=== PATIENT | female | born 1950 | race Caucasian/White ===

== ENCOUNTER 2019-05-30 06:46 | Inpatient (IN) | payer MEDICARE, BC, OTHER ==
[2019-05-17 12:14] LABS: BASOPHILS # (AUTO) 0.1 X10'3 (0-0.2); BASOPHILS % (AUTO) 1.3 % (0-1); EOSINOPHILS # (AUTO) 0.1 X10'3 (0-0.9); LYMPHOCYTES # (AUTO) 1.1 X10'3 (1.1-4.8); LYMPHOCYTES % (AUTO) 25.7 % (21-51); MEAN CORPUSCULAR HEMOGLOBIN 30.2 PG (27.0-31.0); MEAN CORPUSCULAR HGB CONC 33.3 g/dL (33.0-36.5); MEAN CORPUSCULAR VOLUME 90.5 FL (78-98); MEAN PLATELET VOLUME 7.7 FL (7.4-10.4); MONOCYTES # (AUTO) 0.4 X10'3 (0-0.9); MONOCYTES % (AUTO) 8.8 % (2-12); NEUTROPHILS # (AUTO) 2.5 X10'3 (1.8-7.7); NEUTROPHILS % (AUTO) 61.2 % (42-75); PRE OP HEMATOCRIT 40.9 % (35.0-45.0); PRE OP HEMOGLOBIN 13.6 g/dL (12.0-16.0); PRE OP PLATELET COUNT 297 X10'3 (140-440); RED BLOOD COUNT 4.52 X10'6 (4.20-5.60)
[2019-05-17 12:27] LABS: ALBUMIN/GLOBULIN RATIO 1.1 (1.1-1.5); ALKALINE PHOSPHATASE 110 IU/L (46-116); BLOOD UREA NITROGEN 12 MG/DL (7-18); BUN/CREATININE RATIO 20.3 (6.6-38.0); CHLORIDE 106 MMOL/L (99-107); CREATININE 0.59 MG/DL (0.40-0.90); PRE OP ALT 26 U/L (30-65); PRE OP ANION GAP 5 (8-16); PRE OP AST 21 U/L (10-37); PRE OP BILIRUB, TOTAL 0.7 MG/DL (0.0-1.0); PRE OP GLUCOSE 91 MG/DL (70-104); PRE OP POTASSIUM 3.8 MMOL/L (3.4-5.1); PRE OP SODIUM 142 MMOL/L (135-145); TOTAL CARBON DIOXIDE 30.8 MMOL/L (24-32); TOTAL PROTEIN 7.7 G/DL (6.4-8.2); eGFR > 90 ML/MIN
[2019-05-30] VITALS (18 sets, daily range): BP systolic 109–129; BP diastolic 60–87
[~2019-05-30] VITALS: Ht 167.6 cm; Wt 85.0 kg
[~2019-05-30 06:46] MED LIST: AMLO2.5T4 PO; ASCO500C15 PO; CALCIUM/MG/ZINC PO; acetaminophen 325mg tablet PO ONE; cefazolin/dext.iso 2gm/50ml 50 ML IV ONE; famotidine 20mg tablet PO ONE; gabapentin 300mg capsule PO ONE; metoclopramide 5 mg/ml inj IV ONE; oxyCODONE SR 10mg (sust. release) tab -2 tabs (20mg) PO ONE; ringers solution, lacted 1,000 ML IV SCH; tranexamic acid inj. 1,000 MG in normal saline 100 ML IV ONE; vancomycin inj 1,500 MG in normal saline 300ml IV soln IV ONE
[2019-05-30] MEDS ORDERED: ketorolac trometh. 30mg/ml inj. ONE (07:34)
[2019-05-30] MEDS ORDERED: epiNEPHrine 1 mg/ml inj ONE (07:34)
[2019-05-30] MEDS ORDERED: vancomycin 1,000mg inj ONE (07:34)
[2019-05-30] MEDS ORDERED: morphine 10mg/ml inj. ONE (07:35)
[2019-05-30] MEDS ORDERED: ceFAZolin 1000mg inj ONE (07:35)
[2019-05-30] MEDS ORDERED: ROPIVAcaine 0.5% (5mg/ml) 30ml vial ONE ×2 (07:36→11:01)
[2019-05-30] MEDS ORDERED: tetracaine 1% (10mg/ml) pres. free inj. ONE (08:19)
[2019-05-30] MEDS ORDERED: MIDAZolam 1mg/ml 10ml vial ONE (08:24)
[2019-05-30] MEDS ORDERED: fentaNYL/PF 50MCG/1 ML 2ML syringe ONE (08:25)
[2019-05-30] MEDS ORDERED: morphine /PF 1mg/ml 10ml inj. ONE (08:25)
[2019-05-30] MEDS ORDERED: ROPIVAcaine 0.2%/PF PAIN PUMP 400 ML IJ SCH (08:33)
[2019-05-30] MEDS ORDERED: ringers solution, lacted 1,000 ML IV SCH (08:33)
[2019-05-30] MEDS ORDERED: morphine 4 MG/ML inj SYRINge IV PRN ×2 (08:35)
[2019-05-30] MEDS ORDERED: ondansetron/PF 4mg/2ml inj IV PRN ×3 (08:35→11:30)
[2019-05-30] MEDS ORDERED: labetalol 20mg/4ml (5mg/ml) syringe IV PRN (08:35)
[2019-05-30] MEDS ORDERED: fentaNYL/PF 50MCG/1 ML 2ML syringe IV PRN ×2 (08:35)
[2019-05-30] MEDS ORDERED: hydrALAZINE 20mg/ml inj. IV PRN (08:35)
[2019-05-30] MEDS ORDERED: phenylephrine 10mg/ml inj. ONE (09:06)
[2019-05-30] MEDS ORDERED: propofol inj 20 ML IV ONE ×2 (09:32)
[2019-05-30] MEDS ORDERED: LIDOcaine 2% (20mg/ml) 5ml vial ONE (09:32)
[2019-05-30] MEDS ORDERED: diphenhydrAMINE 50 mg/ml inj IV PRN (10:15)
[2019-05-30] MEDS ORDERED: dexamethasone sod phosphate 4mg/ml inj. ONE (11:01)
[2019-05-30] MEDS ORDERED: HYDROmorphone inj. 0.5 MG/0.5 ML DISP.SYRIN IV PRN (11:30)
[2019-05-30] MEDS ORDERED: oxyCODONE IR 5mg (immed. release) tablet PO PRN ×2 (11:30)
[2019-05-30] MEDS ORDERED: HYDROmorphone 1 mg/ml syringe IV PRN (11:30)
[2019-05-30] MEDS ORDERED: bisacodyl 10mg suppository rectal RC PRN (11:30)
[2019-05-30] MEDS ORDERED: acetaminophen 325mg tablet PO PRN (11:30)
[2019-05-30] MEDS ORDERED: magnesium hydroxide 30ml (MOM) UD suspension PO PRN (11:30)
[2019-05-30] MEDS ORDERED: diphenhydrAMINE 25mg capsule PO PRN (11:30)
--- NOTE | 2019-05-30 12:00 | NUR ---
Received from OR via BED , accompanied by Anesthesiologist DR ESTRADA and report given by Anesthesiolgist. PATIENT WAKING UP, DENIES PAIN, V/S WNL, NEUROVASCULAR CHECKS INTACT, 20G PIV LUE , ABRAM DRESSING TO LEFT KNEE CDI W/ COLD POWDER PACK AND ON QUE GTT AT 4MG/HR W/ SCD ON. F/C DRAINING CLEAR YELLOW URINE. SENSATION T-11 .
--- NOTE | 2019-05-30 12:50 | NUR ---
TELE ON PATIENT ALSO
--- NOTE | 2019-05-30 12:50 | NUR ---
PATIENT A&OX4, DENIES PAIN, V/S WNL, NEUROVASCULAR CHECKS INTACT, 20G PIV LUE , ABRAM DRESSING TO LEFT KNEE CDI W/ COLD POWDER PACK ANDON QUE GTT AT 4. W/ SCD ON. F/C DRAINING CLEAR YELLOW URINE. SENSATION T-11. PATIENT TAKEN TO WITH ALL BELONGINGS AND HOOKED UP TO MONITORS IN ROOM AND REPORT GIVEN TO PHLEBOTOMY COORDINATOR WHO HAS TAKEN OVER PATIENT CARE.
[2019-05-30] MEDS: gabapentin 300mg capsule PO SCH ×2 (14:52→20:27)
[2019-05-30] MEDS: acetaminophen 325mg tablet PO SCH ×2 (14:53→20:28)
[2019-05-30] MEDS ORDERED: tranexamic acid inj. 850 MG in normal saline 100ml IV soln 100 ML IV ONE (15:00)
[2019-05-30] MEDS: diphenhydrAMINE 25mg capsule PO PRN ×2 (16:42→23:36)
[2019-05-30] MEDS: ceFAZolin 1GM/D5W- ADD-VANTAGE 50 ML IV SCH ×2 (16:43→23:36)
[2019-05-30] MEDS: potassium cl 20mEq in 1/2 NS 1,000 ML IV SCH (16:44)
[2019-05-30] MEDS ORDERED: vancomycin/NS 1 GM ADD-VANTAGE 250 ML IV SCH (20:00)
[2019-05-30] MEDS ORDERED: amLODIPine 5mg tablet PO SCH (21:00)
[2019-05-30] MEDS ORDERED: sennosides 8.6mg tablet PO SCH (21:00)
[2019-05-31] MEDS: potassium cl 20mEq in 1/2 NS 1,000 ML IV SCH ×2 (02:45→03:28)
[2019-05-31] MEDS: acetaminophen 325mg tablet PO SCH ×2 (02:56→07:58)
[2019-05-31 06:00] VITALS: BP 104/56
[2019-05-31 06:03] LABS: BASOPHILS % (AUTO) 0.5 % (0-1); EOSINOPHILS % (AUTO) 0.1 % (0-6); HEMATOCRIT 38.7 % (35.0-45.0); LYMPHOCYTES # (AUTO) 0.5 X10'3 (1.1-4.8); LYMPHOCYTES % (AUTO) 7.3 % (21-51); MEAN CORPUSCULAR HEMOGLOBIN 30.5 PG (27.0-31.0); MEAN CORPUSCULAR HGB CONC 33.5 g/dL (33.0-36.5); MEAN CORPUSCULAR VOLUME 91.1 FL (78-98); MEAN PLATELET VOLUME 8.1 FL (7.4-10.4); MONOCYTES # (AUTO) 0.4 X10'3 (0-0.9); MONOCYTES % (AUTO) 5.6 % (2-12); NEUTROPHILS # (AUTO) 6.5 X10'3 (1.8-7.7); NEUTROPHILS % (AUTO) 86.5 % (42-75); PLATELET COUNT 271 X10'3 (140-440); RED BLOOD COUNT 4.25 X10'6 (4.20-5.60); RED CELL DISTRIBUTION WIDTH 15.1 % (11.5-14.5); WHITE BLOOD COUNT 7.5 X10'3 (4.5-11.0)
--- NOTE | 2019-05-31 06:40 | NUR ---
Problems reprioritized. Patient report given, questions answered & plan of care reviewed with JACK SORENSON.
[2019-05-31] MEDS ORDERED: HYDR-4353 PO (07:38)
[2019-05-31] MEDS ORDERED: ASPI-1 PO (07:38)
[2019-05-31] MEDS ORDERED: WALKERFR (07:39)
[2019-05-31] MEDS: gabapentin 300mg capsule PO SCH (07:56)
[2019-05-31] MEDS ORDERED: ascorbic acid 500mg tablet PO SCH (08:00)
--- NOTE | 2019-05-31 08:16 | NUR ---
D/c'd echavarria catheter without incident. Pt tolerated procedure well. 725ml clear yellow urine. emptied prior to removal.
[2019-05-31] MEDS ORDERED: aspirin 325mg tablet PO SCH (08:30)
[2019-05-31] MEDS ORDERED: [UNRECOGNIZED DRUG - REMARK] PO NR (10:00)
[2019-05-31 10:15] VITALS: BP 115/60
[2019-05-31] MEDS: diphenhydrAMINE 25mg capsule PO PRN (12:38)
--- NOTE | 2019-05-31 16:16 | NUR ---
Pt s/p surgery to right knee. Pt seen at bedside provided with written and verbal protein education and RD contact information. Pt now discharged, documented with 100% PO intake on regular diet meeting nutrient needs prior to discharge. Addendum: 05/31/19 at [address] Amended: Links added.
[2019-05-31] MEDS ORDERED: celeCOXIB 100mg capsule PO SCH (20:00)
[2019-06-01] MEDS ORDERED: acetaminophen 325mg tablet PO PRN (11:30)
== END 2019-05-31 13:45 | disposition home health service (06) | DRG 470 ==
LOC: PAS IN 06:46 → EDSTATUS 08:30 → ORTHO 4S 12:45
PROVIDERS: ADMIT Orthopaedic Surgery; ATTEND Orthopaedic Surgery
PROC: 3E0T3BZ Introduction of Anesthetic Agent into Peripheral Nerves and Plexi, Percutaneous Approach (ICD-10-PCS; 2019-05-30)
PROC: 0SRD0L9 Replacement of Left Knee Joint with Medial Unicondylar Synthetic Substitute, Cemented, Open Approach (ICD-10-PCS; principal; 2019-05-30 09:06)
DX: M17.12 Unilateral primary osteoarthritis, left knee (principal); I10 Essential (primary) hypertension; G47.30 Sleep apnea, unspecified; E66.9 Obesity, unspecified; G89.29 Other chronic pain; Z79.899 Other long term (current) drug therapy; Z68.30 Body mass index [BMI] 30.0-30.9, adult
CPT/HCPCS: 36415; 80053; 82948; 85025; 87081; 97110; 97116; 97161; 97162; 97530; A4215; A6454; A7000; C1713; C1758; C1776; G0378; J0171; J0690; J1100; J1885; J2001; J2250; J2270; J2370; J2704; J2765; J2795; J3010; J3370; J3480; J7120; Q0163

== ENCOUNTER 2021-04-14 11:04 | Outpatient (CLI) | payer SELFPAY ==
[~2021-04-14 11:04] MED LIST changes: -ASCO500C15 PO; +ASCO500C18 PO; +ASPI-1 PO; +WALKERFR; -acetaminophen 325mg tablet PO ONE; -cefazolin/dext.iso 2gm/50ml 50 ML IV ONE; -famotidine 20mg tablet PO ONE; -gabapentin 300mg capsule PO ONE; -metoclopramide 5 mg/ml inj IV ONE; -oxyCODONE SR 10mg (sust. release) tab -2 tabs (20mg) PO ONE; -ringers solution, lacted 1,000 ML IV SCH; -tranexamic acid inj. 1,000 MG in normal saline 100 ML IV ONE; -vancomycin inj 1,500 MG in normal saline 300ml IV soln IV ONE
== END 2021-04-14 23:59 | disposition home or self-care (01) ==
LOC: VAS 11:04
DX: Z13.6 Encounter for screening for cardiovascular disorders (principal)